=== PATIENT | female | born 1955 | race Asian ===

== ENCOUNTER 2019-01-06 05:54 | Emergency (ER) | payer OTHER ==
[2019-01-06 06:06] VITALS: BMI 23.8
--- NOTE | 2019-01-06 07:44 | PDOC ---
History of Present Illness - General Chief Complaint: Injury Stated Complaint: PAIN,RT HAND Time Seen by Provider: 01/06/19 05:55 History Source: Patient - History of Present Illness Initial Comments: 01/06/19 07:44 63 yo F PMH of DM and HTN presents to clinic for R wrist and elbow pain following mechanical fall. Pt states she fell on her outstretched R hand last night when she tripped on wet floor. Pt states pain is 10/10. Pt tried RICE and baclofen with little relief. Pt has increased pain with movement of wrist. pt states the pain radiates up to the elbow but does not extend past the elbow. pt denies hitting her head or LOC. denies CP or SOB Past History - Past Medical History Allergies/Adverse Reactions: Allergies Allergy/AdvReac Type Severity Reaction Status Date / Time No Known Allergies Allergy Verified 01/06/19 06:07 Home Medications: Ambulatory Orders Amlodipine Besylate [Norvasc -] 5 mg PO DAILY 01/06/19 Glipizide 5 mg PO DAILY 01/06/19 Losartan/Hydrochlorothiazide [Losartan-Hctz 50-12.5 mg Tab] 1 each PO DAILY metFORMIN HCL [Metformin HCl] 500 mg PO DAILY 01/06/19 COPD: No - Psycho Social/Smoking Cessation Hx Smoking History: Never smoked Information on smoking cessation initiated: No Hx Alcohol Use: No Drug/Substance Use Hx: No Review of Systems - Review of Systems Is the patient limited [place]i proficient: Yes Constitutional: No: Fever HEENTM: No: Blurred Vision Respiratory: No: Shortness of Breath Cardiac (ROS): No: Chest Pain ABD/GI: No: Nausea, Vomiting Musculoskeletal: Yes: Joint Pain, Joint Swelling (R wrist ), Joint Stiffness Integumentary: Yes: Bruising (R wrist ) *Physical Exam - Vital Signs Last Vital Signs Temp Pulse Resp BP Pulse Ox 98.3 F 64 18 149/74 100 01/06/19 06:05 01/06/19 06:05 01/06/19 06:05 01/06/19 06:05 01/06/19 06:05 - Physical Exam General Appearance: Yes: Nourished, Appropriately Dressed. No: Apparent Distress Respiratory/Chest: positive: Lungs Clear, Normal Breath Sounds. negative: Accessory Muscle Use Cardiovascular: positive: Regular Rhythm, Regular Rate, S1, S2 Gastrointestinal/Abdominal: positive: Normal Bowel Sounds, Soft. negative: Tender Extremity: positive: Normal Range of Motion, Swelling (R wrist ) Integumentary: positive: Warm, Swelling, Ecchymosis (R wrist ) ED Treatment Course - LABORATORY CBC & Chemistry Diagram: 01/06/19 07:45 01/06/19 07:45 - ADDITIONAL ORDERS Additional order review: Laboratory Results 01/06/19 07:34 POC Glucometer 110 01/06/19 07:34 POC Glucometer 110 - RADIOLOGY Radiology Studies Ordered: Category Date Time Status ELBOW-RIGHT [RAD] Stat Radiology 01/06/19 07:25 Ordered WRIST W/HAND-RIGHT* [RAD] Stat Radiology 01/06/19 07:25 Ordered Medical Decision Making - Medical Decision Making 01/06/19 07:42 63 yo F presenting with R wrist and elbow pain following mechanical fall -r/o fracture -XR R hand, wrist, elbow -CBC, CMP, Mg Phos -IV morphine 2mg q6h for for pain -BGM, ISS for DM mgmt while in ED 01/06/19 09:33 XR reviewed showing distal radial impaction fracture with ulnar styloid fracture Ortho consulted, recommended sugar cane splint and f/u outpt tomorrow or thursday splint placed, pt neurovascular intact following procedure Discharge - Discharge Information Problems reviewed: Yes Clinical Impression/Diagnosis: Fall Disposition: HOME - Admission No - Follow up/Referral Referrals: Judson Varela MD [Staff Physician] - Dung Marie MD [Primary Care Provider] - - Patient Discharge Instructions Patient Printed Discharge Instructions: DI for Wrist Fracture Additional Instructions: You came into the hospital with wrist pain. Your Xray shows that you have a wrist fracture. You have a splint on your arm to help stabilize and protect your wrist for healing. Please follow up with the orthopedic physician tomorrow. Call today to make the appointment for tomorrow. A referral has been included in this packet. You may alternate taking tylenol and advil for pain. Please do not exceed the daily dose on package instructions Please avoid getting the splint on your arm wet. Return to the emergency department if you have any new, worsening, or concerning symptoms. - Post Discharge Activity
--- NOTE | 2019-01-06 07:48 | PDOC ---
Attending Attestation - Resident Resident Name: Sherry Montoya - ED Attending Attestation I have performed the following: I have examined & evaluated the patient, The case was reviewed & discussed with the resident, I agree w/resident's findings & plan, Exceptions are as noted - HPI HPI: 01/06/19 09:53 63-year-old female with a history of [id number] diabetes and hypertension presents emergency department with right wrist pain after a fall. Patient was washing the dishes at home, and was running after her grandson and she slipped on the wet floor falling on her outstretched right hand. Denies head strike or other injuries. Denies loss of consciousness. Has not taken anything for pain. She is otherwise been in her usual state of health, denies any headaches, dizziness, focal weakness or numbness, chest pain, shortness of breath, abdominal pain, nausea, vomiting, diarrhea, lower extremity edema. - Physicial Exam PE: 01/06/19 09:54 GENERAL: Awake, alert, and fully oriented, in no acute distress. Pleasant in NAD HEAD: No signs of trauma EYES: PERRLA, EOMI, sclera anicteric, conjunctiva clear ENT: Oropharynx clear without exudates. Moist mucosa NECK: Normal ROM, supple, no lymphadenopathy, JVD, or masses LUNGS: Breath sounds equal, clear to auscultation bilaterally. No wheezes, and no crackles HEART: Regular rate and rhythm, normal S1 and S2, no murmurs, rubs or gallops ABDOMEN: Soft, nontender, normoactive bowel sounds. No guarding, no rebound. No masses EXTREMITIES: +mild R wrist deformity with moderate edema, +ulnar and radial ttp. Normal strength and sensation in RUE, able to give okay sign, thumbs up, oppose thumb against resistance. Normal abduction of fingers with resistance. No other bony ttp or gross deformities. 2+ pulses peripherally NEUROLOGICAL: Normal speech, cranial nerves intact, equal strength and sensation b/l SKIN: Warm, Dry, normal turgor, no rashes or lesions noted. - Medical Decision Making 01/06/19 10:27 63yo F presents to the ED with R wrist pain after mechanical fall +distal radial and ulnar styloid fracture XR, case reviewed with Dr. Varela/SYEDA Dsouza Recommend no reduction, sugar tong splint and f/u tomorrow in clinic Pain well controlled Sugar tong placed, NVI post splint Pt clinically stable for DC home I discussed the physical exam findings, ancillary test results and final diagnoses with the patient. I answered all of the patient's questions. The patient was satisfied with the care received and felt comfortable with the discharge plan and treatment plan. The patient will call their primary care physician within 24 hours to arrange follow-up and will return to the Emergency Department with any new, persistent or worsening symptoms.
[2019-01-06] MEDS ORDERED: MORPHINE SULFATE 2 MG/ML VIAL ONE (07:49)
[2019-01-06 07:57] LABS: BASO % 0.7 % (0-2.0); EOS % 1.1 % (0-4.5); HEMATOCRIT 38.3 % (32.4-45.2); HEMOGLOBIN 12.9 GM/dL (10.7-15.3); LYMPH % 16.1 % (8-40); MCH 27.7 pg (25.7-33.7); MCHC 33.7 g/dl (32.0-36.0); MEAN CELL VOLUME 82.3 fl (80-96); MEAN PLT VOLUME 9.9 fl (7.5-11.1); MONO % 5.4 % (3.8-10.2); NEUT % 76.7 % (42.8-82.8); PLATELET COUNT 178 K/MM3 (134-434); RBC 4.65 M/mm3 (3.60-5.2); RDW 14.4 % (11.6-15.6); WHITE BLOOD COUNT 7.4 K/mm3 (4.0-10.0)
[2019-01-06] MEDS: morphine CARPU-JECT 4 MG/1 ML DISP.SYRIN IVPUSH PRN ×2 (07:57→08:56)
[2019-01-06] MEDS ORDERED: ONDANSETRON 4 MG/2 ML VIAL IVPUSH ONE (08:18)
[2019-01-06] MEDS ORDERED: SODIUM CHLORIDE 500 ML IV STA (08:19)
[2019-01-06 08:24] LABS: ALBUMIN 4.3 g/dl (3.4-5.0); BILIRUBIN,TOTAL 0.3 mg/dL (0.2-1); BLOOD UREA NITROGEN 17.6 mg/dL (7-18); CALCIUM 9.3 mg/dL (8.5-10.1); CREATININE 0.8 mg/dL (0.55-1.3); MAGNESIUM 2.5 mg/dL (1.8-2.4); PHOSPHOROUS 4.1 mg/dL (2.5-4.9); POTASSIUM 3.8 mmol/L (3.5-5.1); TOT PROT 8.5 g/dl (6.4-8.2)
[2019-01-06 08:52] LABS: INR 0.99 (0.83-1.09); PROTHROMBIN TIME (PATIENT) 11.7 SEC (9.7-13.0)
[2019-01-06 08:55] LABS: ACTIVATED PTT 35.1 SECONDS (25.2-36.5)
[2019-01-06] MEDS ORDERED: ONDANSETRON 4 MG/2 ML VIAL ONE (08:58)
[2019-01-06 09:21] VITALS: BP 143/69; PULSE 63; TEMP 98
[2019-01-06] MEDS ORDERED: INSULIN SLIDING SCALE (NOVOLOG) 1 VIAL SQ SCH (11:00)
== END 2019-01-06 10:11 | disposition home or self-care (01) ==
LOC: JER 05:54
PROC: 3E033NZ Introduction of Analgesics, Hypnotics, Sedatives into Peripheral Vein, Percutaneous Approach (ICD-10-PCS; principal; 2019-01-06)
PROC: 3E033GC Introduction of Other Therapeutic Substance into Peripheral Vein, Percutaneous Approach (ICD-10-PCS; 2019-01-06)
PROC: 3E0337Z Introduction of Electrolytic and Water Balance Substance into Peripheral Vein, Percutaneous Approach (ICD-10-PCS; 2019-01-06)
PROC: 2W3CX1Z Immobilization of Right Lower Arm using Splint (ICD-10-PCS; 2019-01-06)
DX: S52.614A Nondisplaced fracture of right ulna styloid process, initial encounter for closed fracture (principal); E11.9 Type 2 diabetes mellitus without complications; I10 Essential (primary) hypertension; W18.39XA Other fall on same level, initial encounter; Y93.89 Activity, other specified; Y92.89 Other specified places as the place of occurrence of the external cause
CPT/HCPCS: 36415; 73070-TC-RT-FY; 73110-TC-RT-FY; 73130-TC-RT-FY; 80053; 82962; 83735; 84100; 85025; 85610; 85730; 99283-25